=== PATIENT | male | born 1975 | race Caucasian/White ===

== ENCOUNTER 2022-05-24 19:11 | Emergency (ER) | payer BC, SELFPAY ==
[2022-05-24 19:16] VITALS: BP 128/82; PULSE 81; RESP 16; TEMP 36.3; O2SAT 98
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
--- NOTE | 2022-05-24 19:30 | DI.RAD_ITS ---
Exam(s) XR ELBOW RT COMPLETE EXAM: XR ELBOW RT COMPLETE CLINICAL HISTORY: trauma. TECHNIQUE: 2D digital imaging was performed. COMPARISON: No exams were available for comparison FINDINGS: 3 views There is an oblique fracture of the radial head, nondisplaced. No other fractures. Joint effusion n oted. IMPRESSION: Nondisplaced radial head fracture. Hemarthrosis. DATA REPOSITORY: RADIATION DOSE DELIVERED:
--- NOTE | 2022-05-24 20:10 | DI.VRAD_ITS ---
PROCEDURE INFORMATION: Exam: XR Right Elbow Exam date and time: 05/24/2022 7:43 PM Age: 46 years old Clinical indication: Other: Trauma TECHNIQUE: Imaging protocol: Radiologic exam of the right elbow. Views: 3 or more views. COMPARISON: No relevant prior studies available. FINDINGS: Bones/joints: Obliquely oriented, intra-articular fracture through the radial aspect of the radial head involving an estimated 40-50 % of the articular surface. Fracture is close to anatomic in alignment. No joint dislocation. Joint effusion is present. Soft tissues: No focal abnormality. IMPRESSION: Nondisplaced intra-articular radial head fracture. Dictated and Authenticated by: David Martínez MD. Ordering:PATRIC Stubbs MD
[2022-05-24] MEDS: Ibuprofen 600 MG TAB PO (20:21)
== END 2022-05-24 20:40 | disposition home or self-care (01) ==
PROVIDERS: Emergency Provider Emergency Medicine
DX: S52.121A Displaced fracture of head of right radius, initial encounter for closed fracture (principal); W13.2XXA Fall from, out of or through roof, initial encounter
CPT/HCPCS: 99283; 73080; 99282

== ENCOUNTER 2022-06-02 11:56 | Outpatient (CLI) | payer BC, SELFPAY ==
--- NOTE | 2022-06-02 10:30 | DI.RAD_ITS ---
Exam(s) XR ELBOW RT COMPLETE EXAM: XR ELBOW RT COMPLETE CLINICAL HISTORY: F/U R RADIAL HEAD FX. TECHNIQUE: 2D digital imaging was performed of the left elbow. Three images were obtained. AP, lat eral and oblique views were obtained. COMPARISON: CR,XR XR ELBOW RT COMPLETE from 05/24/2022 FINDINGS: BONES: There is again seen a radial head fracture which shows very minimal depression. No bony destr uctive lesion is seen. JOINTS: The elbow is normally aligned. There is a joint effusion present. SOFT TISSUE: Normal. IMPRESSION: Stable radial head fracture. DATA REPOSITORY: RADIATION DOSE DELIVERED:
== END 2022-06-02 11:57 | disposition home or self-care (01) ==
LOC: DIORS 11:57
PROVIDERS: Visit Provider Student in an Organized Health Care Education/Training Program
DX: M25.421 Effusion, right elbow; S52.121A Displaced fracture of head of right radius, initial encounter for closed fracture; X58.XXXA Exposure to other specified factors, initial encounter
CPT/HCPCS: 73080

== ENCOUNTER 2022-06-30 09:18 | Outpatient (CLI) | payer BC, SELFPAY ==
--- NOTE | 2022-06-30 08:00 | DI.RAD_ITS ---
Exam(s) XR ELBOW RT COMPLETE EXAM: XR ELBOW RT COMPLETE CLINICAL HISTORY: RIGHT RADIAL HEAD FRACTURE. TECHNIQUE: 2D digital imaging was performed of the left elbow. Three images were obtained. AP, lat eral and oblique views were obtained. COMPARISON: CR XR ELBOW RT COMPLETE from 06/02/2022 FINDINGS: BONES: There has been no change in alignment of the radial head fracture. The fracture line is still visualized. No new fracture is seen. No bony destructive lesion is seen. JOINTS: The elbow is normally aligned. No joint effusion is seen. SOFT TISSUE: Normal. IMPRESSION: Stable radial head fracture. DATA REPOSITORY: RADIATION DOSE DELIVERED:
== END 2022-06-30 09:19 | disposition home or self-care (01) ==
LOC: DIORS 09:19
PROVIDERS: Visit Provider Student in an Organized Health Care Education/Training Program
DX: S52.121A Displaced fracture of head of right radius, initial encounter for closed fracture (principal); X58.XXXA Exposure to other specified factors, initial encounter
CPT/HCPCS: 73080

== ENCOUNTER 2022-10-02 18:53 | Emergency (ER) | payer OTHER, SELFPAY ==
[2022-10-02 18:56] VITALS: BP 146/88; PULSE 78; RESP 18; TEMP 37.3; O2SAT 99
--- NOTE | 2022-10-02 19:56 | DI.RAD_ITS ---
Exam(s) XR ELBOW LT COMPLETE EXAM: XR ELBOW LT COMPLETE CLINICAL HISTORY: Elbow pain. TECHNIQUE: 2D digital imaging was performed. COMPARISON: No exams were available for comparison FINDINGS: 3 views There is swelling posteriorly over the olecranon. There is a tiny avulsion injury off the posterior upper olecranon fossa. No elevation of the anterior fat pad to suggest joint effusion. Radial head and neck appear unremarkable. Epicondyles unremarkable. No degenerative changes. IMPRESSION: Posterior soft tissue swelling. Subtle small fracture fragment off the posterior superior olecranon noted. DATA REPOSITORY: RADIATION DOSE DELIVERED:
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
--- NOTE | 2022-10-02 20:18 | DI.VRAD_ITS ---
PROCEDURE INFORMATION: Exam: XR Left Elbow Exam date and time: 10/02/2022 20:06 Age: 47 years old Clinical indication: Pain; Elbow; Left; Additional info: Elbow pain TECHNIQUE: Imaging protocol: Radiologic exam of the left elbow. Views: 3 or more views. COMPARISON: No relevant prior studies available. FINDINGS: Bones/joints: No acute fracture or subluxation. No definite joint effusion on a slightly rotated lateral view. Soft tissues: Distal triceps enthesophyte. Swelling posteriorly, pattern suggests olecranon bursitis or contusion. IMPRESSION: 1. No acute bony pathology. 2. Swelling posteriorly, pattern suggests olecranon bursitis or contusion. Dictated and Authenticated by: Kaitlin Herrera MD. Ordering:ASHA Brown MD
== END 2022-10-02 21:39 | disposition home or self-care (01) ==
PROVIDERS: Emergency Provider Emergency Medicine
DX: S50.02XA Contusion of left elbow, initial encounter (principal); W17.89XA Other fall from one level to another, initial encounter; Y93.89 Activity, other specified; Y92.018 Other place in single-family (private) house as the place of occurrence of the external cause; Y99.0 Civilian activity done for income or pay
CPT/HCPCS: 99283; 73080

== ENCOUNTER 2025-03-03 01:32 | Outpatient (CLI) | payer BC, SELFPAY ==
[2025-03-03 08:27] LABS: Hemoglobin A1C 5.0 % (<5.7)
[2025-03-03 09:12] LABS: Cholesterol 190 mg/dL (<200); HDL Cholesterol 41 mg/dL (>40)
== END 2025-03-03 01:33 | disposition home or self-care (01) ==
LOC: LBO 01:32
PROVIDERS: PCP Nurse Practitioner Family; Visit Provider Nurse Practitioner Family
DX: Z13.1 Encounter for screening for diabetes mellitus (principal); Z13.220 Encounter for screening for lipoid disorders
CPT/HCPCS: 36415; 80061; 83036